=== PATIENT | male | born 1975 | race African-American/Black ===

== ENCOUNTER 2024-09-01 12:08 | Emergency (ER) | payer OTHER ==
[~2024-09-01] VITALS: Ht 162.6 cm; Wt 59.0 kg
[2024-09-01 12:38] VITALS: TEMP 36.9; O2SAT 100
[2024-09-01] MEDS ORDERED: IBUP-2028 MT (16:57)
[2024-09-01] MEDS ORDERED: LIDO-53 TP (16:57)
[2024-09-01 18:04] VITALS: BP 124/75; PULSE 71; RESP 16; O2SAT 99
== END 2024-09-01 18:05 | disposition home or self-care (01) ==
LOC: ER 12:42
DX: S05.12XA Contusion of eyeball and orbital tissues, left eye, initial encounter (principal); M79.604 Pain in right leg; R26.2 Difficulty in walking, not elsewhere classified; Z79.899 Other long term (current) drug therapy; Y04.0XXA Assault by unarmed brawl or fight, initial encounter; Y93.89 Activity, other specified; Y92.89 Other specified places as the place of occurrence of the external cause; Y99.8 Other external cause status
CPT/HCPCS: 73590; 73630; 99284